=== PATIENT | female | born 1995 | race Asian ===

== ENCOUNTER 2016-09-22 14:03 | Emergency (ER) | payer SELFPAY ==
--- NOTE | 2016-09-22 15:35 | ER PHYSICIAN DOCUMENTATION ---
Physician Documentation [facility] Name:Nevaeh Lizama Age:20 yrs Sex:Female :1995 Arrival Date:09/22/2016 Time:14:03 Bed3 Private MD: Jose E Barrett Disposition: 09/22/16 15:15 Discharged to Home/Self Care. Impression: Examination or test, Positive Results. - Condition is Good. - Discharge Instructions: , New Dx. - Medical Reconciliation form form. - Follow up: Private Physician; When: 2 - 3 days; Reason: Continuance of care. - Problem is new. - Symptoms are unchanged. HPI: 09/22 15:12 This 20 yrs old Female presents to ER via Walk In with complaints of sc PROBLEM. 15:12 The patient presents with a desire for a test, and has no other complaints. sc Onset: The symptoms/episode began/occurred 8 week(s) ago. Ectopic Risk: No risk factors noted. 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 None - PMHx: None; - PSHx: None; - Tetanus: Other NA . - Ebola Screening: : Patient negative for fever greater than or equal to 101.5 degrees Fahrenheit, and additional compatible Ebola Virus Disease symptoms. Patient reports travel to an Ebola-affected area in the 21 days before illness onset. Patient reports to have traveled to from [place]. - Immunization history: NA today. - Social history: Smoking status: Patient states was never smoker of tobacco. Patient uses alcohol but reports only rare drinking. Patient/guardian denies using street drugs. ROS: 15:13 Negative for injury or acute deformity, urinary symptoms. sc 15:13 Constitutional: Negative for fever, chills, and weight loss. sc Eyes: Negative for injury, pain, redness, and discharge. Neck: Negative for injury, pain, and swelling. Cardiovascular: Negative for chest pain, palpitations, and edema. Respiratory: Negative for shortness of breath, cough, wheezing, and pleuritic chest pain. Back: Negative for injury and pain. Skin: Negative for injury, rash, and discoloration. 15:13 Neuro: Negative for headache, weakness, numbness, tingling, and seizure. Exam: Constitutional: This is a well developed, well nourished patient who is awake, alert, and in no acute distress. Head/Face: Normocephalic, atraumatic. Eyes: Pupils equal round and reactive to light, extra-ocular motions intact. Lids and lashes normal. Conjunctiva and sclera are non-icteric and not injected. Cornea within normal limits. Periorbital areas with no swelling, redness, or edema. Abdomen/GI: Soft, non-tender, with normal bowel sounds. No distension or tympany. No guarding or rebound. No evidence of tenderness throughout. 15:13 Back: No spinal tenderness. No costovertebral tenderness. Full range of motion. hi 15:13 : CVA tenderness, is absent, Pelvic Exam: the exam is deferred. 15:15 Abdomen/GI: Palpation: abdomen is soft and non-tender. hi Vital Signs: 14:21 BP 130 / 86; Pulse 91; Resp 12; Temp 98.9(O); Pulse Ox 99% ; Weight 95.71 kg; Height 5 nf ft. 5 in. (165.10 cm); Pain 0/10; 14:21 Body Mass Index 35.11 (95.71 kg, 165.10 cm) nf MDM: 14:12 Patient medically screened. hi 15:13 Differential diagnosis: molar preganancy, ruptured ectopic . Data reviewed: hi vital signs, nurses notes, lab test result(s), and as a result, I will discharge patient. Counseling: I had a detailed discussion with the patient and/or guardian regarding: the historical points, exam findings, and any diagnostic results supporting the discharge/admit diagnosis, lab results, the need for outpatient follow up, for a referral to a specialist, requested services information. 09/22 15:05 Order name: HCG, URINE; Complete Time: 15:05 EDWV 09/22 15:05 Interpretation: Normal Except: HCG, URINE POSITIVE. hi 09/22 14:14 Order name: Urine Dip; Complete Time: 15:34 hi Dispensed Medications: No medications were administered Point of Care Testing: Urine Dip: 14:59 pH: 6.0; ; Specific [place]: 1.025; Ketones: Negative; Glucose: Negative; Protein: nf Trace; Leukocytes: Negative; Nitrite: Negative ; Blood: Negative; Bilirubin: Negative ; Urobilinogen: Normal Signatures: Malissa Velarde RN RN nf Jose E Hickman MD MD hi
--- NOTE | 2016-09-22 15:35 | ER NURSING DOCUMENTATION ---
Nurse's Notes [facility] Name:Nevaeh Lizama Age:20 yrs Sex:Female :1995 Arrival Date:09/22/2016 Time:14:03 Bed3 Private MD: Diagnosis: Examination or test, Positive Results Presentation: 09/22 14:13 Acuity: IRMA 3 nf 14:19 Transition of care: patient was not received from another setting of care. Notified ED nf Physician of patient's arrival and CC Dr. Hickman notified. 14:19 Method Of Arrival: Walk In nf 14:28 Presenting complaint: Patient states: patient states she is about 8 weeks and nf is requesting termination; patient aware that that service is not available in the ER or [place]; declines medical exam and states she has no medical needs at this time. Triage Assessment: 14:21 General: Appears well nourished, well groomed, Behavior is pleasant. Pain: Denies pain. nf 14:27 Neuro: No deficits noted. Level of Consciousness is awake, alert. Cardiovascular: No nf deficits noted. Capillary refill < 3 seconds. Respiratory: Respiratory effort is even, unlabored, Respiratory pattern is regular. GI: Denies nausea, vomiting. : Denies burning with urination, cramping discharge, urinary frequency, urgency, vaginal bleeding, vaginal itching. 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 None - PMHx: None; - PSHx: None; - Tetanus: Other NA . - Ebola Screening: : Patient negative for fever greater than or equal to 101.5 degrees Fahrenheit, and additional compatible Ebola Virus Disease symptoms. Patient reports travel to an Ebola-affected area in the 21 days before illness onset. Patient reports to have traveled to from [place]. - Immunization history: NA today. - Social history: Smoking status: Patient states was never smoker of tobacco. Patient uses alcohol but reports only rare drinking. Patient/guardian denies using street drugs. Screenin:27 Infectious Disease Risk None. Abuse screen: Denies threats or abuse. Nutritional nf screening: No deficits noted. Assessment: 14:27 See Triage Assessment done by same RN. nf Vital Signs: 14:21 BP 130 / 86; Pulse 91; Resp 12; Temp 98.9(O); Pulse Ox 99% ; Weight 95.71 kg; Height 5 nf ft. 5 in. (165.10 cm); Pain 0/10; 14:21 Body Mass Index 35.11 (95.71 kg, 165.10 cm) ED Course: 14:07 Patient arrived in ED. ama 14:12 Jose E Hickman MD is Attending Physician. ks 14:12 Malissa Velarde RN is Primary Nurse. nf 14:13 Triage completed. nf 14:28 Valuables Remains with patient. Door closed. Noise minimized. Lights dimmed. Moved to private room. Verbal reassurance given. Pillow given. Administered Medications: No medications were administered Point of Care Testing: Urine Dip: 14:59 pH: 6.0; ; Specific [place]: 1.025; Ketones: Negative; Glucose: Negative; Protein: nf Trace; Leukocytes: Negative; Nitrite: Negative ; Blood: Negative; Bilirubin: Negative ; Urobilinogen: Normal Outcome: 15:15 Discharge ordered by . ks 15:31 Discharged to home ambulatory. nf 15:31 Condition: stable 15:31 Discharge Assessment: Patient awake, alert and oriented x 3. No cognitive and/or functional deficits noted. Patient verbalized understanding of disposition instructions. 15:31 Discharge instructions given to patient, Instructed on discharge instructions, follow up and referral plans. Demonstrated understanding of instructions, Prescriptions given X patient given contact information for clinic closest to [place] which is in [place] 15:34 Patient left the ED. nf Signatures: Malissa Velarde RN RN Jose E Hickman MD MD ks Oscar Myrick, Reg Reg ama
== END 2016-09-22 15:35 | disposition home or self-care (01) ==
LOC: ER 14:03
DX: Z32.01 Encounter for pregnancy test, result positive (principal)
CPT/HCPCS: 84703; 99282